=== PATIENT | female | born 1970 | race Caucasian/White ===

== ENCOUNTER 2019-08-23 23:40 | Emergency (ER) | payer MEDICAID ==
[~2019-08-23] VITALS: Ht 167.6 cm; Wt 63.0 kg
--- NOTE | 2019-08-24 03:30 | NUR ---
WARM COMPRESS APPLIED TO BACK OF NECK
[2019-08-24] MEDS ORDERED: ketorolac trometh inj. 60 MG/2 ML VIAL IM ONE (03:50)
--- NOTE | 2019-08-24 04:00 | NUR ---
MD JETT AT BEDSIDE CONFIRMED THAT ABCESS AT THE BACK OF THE NECK IS CELLULTIS WILL REASSSESS POC
[2019-08-24] MEDS ORDERED: levoFLOXACIN 250mg tablet PO ONE (04:05)
[2019-08-24] MEDS ORDERED: FLUC150T66 PO (04:15)
[2019-08-24] MEDS ORDERED: LEVO750T21 PO (04:15)
[2019-08-24] MEDS ORDERED: levoFLOXACIN 500mg tablet PO ONE (04:25)
[2019-08-24 04:35] VITALS: BP 144/71
== END 2019-08-24 03:30 | disposition home or self-care (01) ==
LOC: ER 23:41
DX: L03.811 Cellulitis of head [any part, except face] (principal); L02.811 Cutaneous abscess of head [any part, except face]; Z98.51 Tubal ligation status
CPT/HCPCS: 96372; 99284; J1885

== ENCOUNTER 2019-09-02 16:38 | Emergency (ER) | payer MEDICAID ==
[~2019-09-02] VITALS: Ht 167.6 cm; Wt 58.4 kg
[~2019-09-02 16:38] MED LIST: BACDS PO; CEPH250T PO; FLUC150T66 PO
[2019-09-02 16:48] VITALS: BP 130/83
[2019-09-02] MEDS ORDERED: BACDS PO (18:07)
== END 2019-09-02 18:20 | disposition home or self-care (01) ==
LOC: ER 16:39
DX: L02.811 Cutaneous abscess of head [any part, except face] (principal); Z86.14 Personal history of Methicillin resistant Staphylococcus aureus infection; Z98.51 Tubal ligation status; Z79.2 Long term (current) use of antibiotics; Z79.899 Other long term (current) drug therapy
CPT/HCPCS: 99283